=== PATIENT | male | born 1935 | race Caucasian/White ===

== ENCOUNTER → 2017-09-06 | Outpatient (CLI) | payer MEDICARE ==
[~2017-09-06] MED LIST: ASPI-1012 PO; ATOR40TA71 PO; CEPH500B PO; CLOP75TA32 PO; GLIP2.5T2 PO; LEVO25TA54 PO; MIDO5TAB PO; MULT1CAP32 PO; SAXA1TBM3 PO
== END | disposition home or self-care (01) ==
LOC: SHCH 13:20
PROVIDERS: ATTEND Internal Medicine Cardiovascular Disease
DX: I48.2 Chronic atrial fibrillation (principal); I48.0 Paroxysmal atrial fibrillation; I71.4 Abdominal aortic aneurysm, without rupture; Z95.0 Presence of cardiac pacemaker
CPT/HCPCS: 93306